=== PATIENT | male | born 1990 ===

== ENCOUNTER 2017-02-19 08:31 | Emergency (ER) | payer OTHER ==
--- NOTE | 2017-02-19 09:02 | C.PDOC ---
History Of Present Illness <Emre Colby P - Last Filed: 02/19/17 09:02> <Goyo Shepherd - Last Filed: 02/19/17 13:18> 27 year old male presents with complaints of body aches of two day duration. Patient admits to cold symptoms 4 days prior which have since resolved. Patient took one 600 mg ibuprofen tablet yesterday around 12 noon and then again this morning around 4 am. This was leftover medication from another prior hospital course. Patient has a known allergic rash reaction to ibuprofen and states that he had this same rash both times he took ibuprofen. The rash yesterday was mild and limited to his arms. Earlier today, he experienced a more moderate rash again limited to the arms. Patient was concerned and thus came in for evaluation. (Goyo Shepherd) <Emre Colby P - Last Filed: 02/19/17 09:02> History Per: Patient History/Exam Limitations: no limitations Onset/Duration Of Symptoms: Days Current Symptoms Are (Timing): Still Present Location Of Pain: Other (arms and legs) Sick Contacts (Context): None Associated Symptoms: Other (Rash which has since resolved) Ear Symptoms: Bilateral: None Severity: Moderate Additional History Per: Patient <Goyo Shepherd - Last Filed: 02/19/17 13:18> Time Seen by Provider: 02/19/17 09:02 Chief Complaint (Nursing): Flu-like Symptoms Past Medical History - Medical History PMH: Bronchitis, Gastritis Family History: States: Unknown Family Hx - Social History Hx Tobacco Use: No Hx Alcohol Use: Yes Hx Substance Use: No - Immunization History Hx Tetanus Toxoid Vaccination: Yes (06/12/2013) Hx Influenza Vaccination: No Hx Pneumococcal Vaccination: No <Emre Colby P - Last Filed: 02/19/17 09:02> Reviewed: Historical Data, Nursing Documentation, Vital Signs - Medical History PMH: Gastritis Surgical History: No Surg Hx Family History: States: Unknown Family Hx - Social History Hx Alcohol Use: Yes (Socially during special events) <Goyo Shepherd - Last Filed: 02/19/17 13:18> Vital Signs: Last Vital Signs Temp 98.2 F 02/19/17 10:53 Pulse 88 02/19/17 10:53 Resp 18 02/19/17 10:53 BP 118/65 02/19/17 10:53 Pulse Ox 99 02/19/17 10:53 - [facility] Procedures SUTURE SCROTAL LACERAT (06/12/13) TETANUS TOXOID ADMINIST (06/12/13) Review Of Systems Constitutional: Negative for: Fever, Chills Cardiovascular: Negative for: Chest Pain Respiratory: Negative for: Cough, Shortness of Breath, Wheezing Gastrointestinal: Negative for: Nausea, Vomiting Musculoskeletal: Positive for: Arm Pain, Leg Pain Skin: Positive for: Rash (resolved) Neurological: Negative for: Weakness, Numbness, Incoordination <Goyo Shepherd - Last Filed: 02/19/17 13:18> Physical Exam - Physical Exam Appears: Non-toxic, No Acute Distress Skin: Normal Color, Warm, Dry Head: Atraumatic, Normacephalic Eye(s): bilateral: Normal Inspection, PERRL, EOMI Ear(s): Bilateral: Normal Nose: Normal, No Flaring, No Discharge, No Epistaxis Oral Mucosa: Moist, No Drooling Tongue: Normal Appearing Throat: Normal, No Erythema, No Exudate Neck: Normal, Normal ROM Lymphatic: No Adenopathy Chest: Symmetrical Cardiovascular: Rhythm Regular Respiratory: Normal Breath Sounds, No Wheezing Gastrointestinal/Abdominal: Normal Exam, Soft, No Tenderness Back: Normal Inspection, No CVA Tenderness Extremity: Normal ROM, No Pedal Edema, No Calf Tenderness, Capillary Refill (2- 3 secs) Extremity: Bilateral: Atraumatic Pulses: Left Dorsalis Pedis: Normal, Right Dorsalis Pedis: Normal Neurological/Psych: Oriented x3, Normal Speech, Normal Cranial Nerves, Normal Motor, Normal Sensation, Eyes Open With Command, Other (negative finger to nose test) Extremity: Right: No Drift, Left: No Drift, Upper: No Drift, Lower: No Drift <Goyo Shepherd - Last Filed: 02/19/17 13:18> ED Course And Treatment O2 Sat by Pulse Oximetry: 97 <Emre Colby - Last Filed: 02/19/17 09:02> Progress Note: Pt seen and examined. Vitals signs noted within normal limits. Patient counseled on avoiding any medications or foods for which he may have developed an allergic reaction to in the past. This includes ibuprofen containing medications as well as pork products. Patient's cold symptoms appear to have ceased. He is encouraged to use tylenol for body aches if necessary. Reassessment Condition: Improved <Goyo Shepherd - Last Filed: 02/19/17 13:18> Disposition <LashaEmre Mitesh - Last Filed: 02/19/17 09:02> - Disposition Disposition Time: 11:03 - POA Present On Arrival: None <Goyo Shepherd - Last Filed: 02/19/17 13:18> - Disposition Referrals: [facility] [Outside] Disposition: HOME/ ROUTINE Condition: IMPROVED Additional Instructions: Patient is medically stable for discharge home. Patient should follow up in the [facility] within 7 days for follow up care as it is unclear whether he has a primary medical doctor. Patient is instructed not to use ibuprofen anymore due to his allergic reaction. Patient should use tylenol if he begins to experience body aches again. Patient is encouraged to rest and continue drinking fluids as needed. If symptoms return, go to the Emergency Room. Instructions have been explained to the patient who is aware. Forms: [facility] (Nepali) - Clinical Impression Clinical Impression: Upper respiratory infection
[2017-02-19 10:54] VITALS: BP 118/65; PULSE 88; RESP 18; TEMP 98.2; O2SAT 99
== END 2017-02-19 11:11 | disposition home or self-care (01) ==
LOC: C.ER 08:31
DX: J06.9 Acute upper respiratory infection, unspecified (principal)